=== PATIENT | male | born 2000 ===

== ENCOUNTER 2021-09-04 16:09 | Inpatient (IN) | payer OTHER, SELFPAY ==
[2021-09-04 16:47] VITALS: BP 118/78; PULSE 68; RESP 16; TEMP 36.6; O2SAT 98
[2021-09-04 16:54] VITALS: BMI 33.1
--- NOTE | 2021-09-04 18:40 | PC.ADMIT ---
Pt is a 20y/o male admitted from [facility] for Inpatient level of care. Pt presents with SI with a plan to OD on heroin. Pt is alert and oriented x3. Covid negative and Tox positive for marijuana. Pt denies SI at this time despite endorsing suicide notes. Pt presents as disheveled, hyper-verbal with normal speech tone and rhythm. Pt States that his girl friend left him because of his behavior recently secondary to going off his meds for about a year. Reports being depressed and anxious. Pt seen to be a little restless. Fixated on getting out of this place saying this is my first time here and i want to sign a 3 day notice to leave. Pt signs a 3 day notice which is going to up on wednesday, . admit/transfer order obtained. Hospitalis consult sent.
[2021-09-04] MEDS: Divalproex Sodium ER 500 MG TAB.ER.24H 1000 MG PO (19:46)
[2021-09-04] MEDS: cloNIDine HCL 0.1 MG TABLET PO (19:46)
[2021-09-04] MEDS: busPIRone HCl 5 MG TABLET 15 MG PO (19:46)
[2021-09-04 20:35] LABS: Valproate 81.7 mcg/mL (50.0-100.0)
--- NOTE | 2021-09-04 21:23 | HO.PSYADMNOT ---
Documented by User: Katy Rouse NP 09/05/21 07:43 HPI Date of Service: 09/04/21 Chief Complaint: depression SI Sources of Information: patient interviewed, chart reviewed and crisis/core team assessment reviewed HPI Subjective Notes: Calle Warning, Conditional Voluntary and 3 Day Healthcare Proxy: No Guardianship: No Medical Problems Affecting Mental Status: No Narrative: Yogi is a 20 y.o. Who carries a dx of Bipolar II DO. Per crisis eval, pt presented to the [facility] via EMS due to depression, SI. Pt?s ex-gf went to their apartment to get her belongings with PD and found pt with his medications spilled on the table, he was then placed on a section 12a. Also per eval, pt went to [place] the previous with plan to purchase a firearm for suicide, however he only bought cigarettes, went home, and drank 3.5 [place] ice teas. He also disclosed recent suicide attempt from ODing on fentanyl and heroin. He has a hx of writing suicide notes and SIB, i.e. held a knife to his throat. He reports he has been adherent on his medication since 06/2021 and has OP psych providers at [facility]. Per [facility] ED: Utox positive for cannabis, negative for alcohol. CBC wnl. CMP wnl except BUN 5. No EKG done.? I evaluated the pt this evening and upon interview he reports he is ?anxious? and ?Im willing to try anything.? Pt reports he recently re-started his depakote 07/17/2021 and that prior to this he had been off meds for 6 months. States while off medication, he had difficulty sustaining a job, ?keeping myself motivated to be better, do the right thing.? Says this worsened his depression, ?I felt like a failure, I got depressed on myself and me not being on my meds to keep me level, I kept falling deeper and deeper, I isolated myself.? Says he would play video games all day, smoking cannabis, ?shitty everyday routine.?? Pt?s gf recently ended their relationship, says she was ?trying to tell me to go get help,? however pt would become angry, ?getting in her face,? ?I scared her,? thinks she may be filing a restraining order against him. He admits that he recently went up to a gun shop in [place], however he did not purchase a firearm and says if he did, ?I dont think I would have gone through with it.? States his sleep has been poor, however today he feels ?happy? and he has had ?energy all day.? Pt is advocating for a short stay, signed a 3 day notice, saying ?I really want my family next to me.? Past Psychiatric History: -Has OP psych services at [facility], psych provider is Dr. Hubert Van -Pt reports he re-started his Depakote 07/17/2021, re-started buspar and clonidine 07/10/2021. Prior to this, he had been off his meds since 01/2021. -Pt reports he has hx of inpatient psych admissions since adolescence for disruptive, dysregulated behavior, anger episodes, and depression. Diagnosed with ADHD in childhood. 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 Medical Evaluation Reviewed: Hospitalist Eval Pending [facility] Family History: -Bio father: Bipolar DO, PTSD, ?anger management issues? -Bio mom: Depression, anxiety Social History: -Had been working for a [employer] company x 2 years, was let go 09/2020. Says he would like to start a [employer] company, has a truck already (?I got the truck when I was in a manic state?). Says his brothers have a [employer] company in [place]. -Pt was residing with his gf, however says they recently broke up and she may be filing restraining order. They were evicted from the apartment due to pt having altercation with neighbor. Plans to move in with his mom and M GMA. Substance History: -cannabis: daily use -Alcohol: last use 08/29/21, drank 3.5 [place] iced teas. Prior to this, was consuming 2 drinks a night x 1 week. States after he turned 19, he was drinking excessively but tries not to drink while on medication. Denies withdrawal sx or hx of seizures. -Opioids: states he tried to ?kill myself? the first week of July 2021 by injecting $45 worth of heroin, fentanyl. -Cocaine: states he used this ?years ago. Diagnostics Vital Signs (24Hr): Vital Signs - 24 hr 09/04/21 16:47 Temperature 97.8 F Pulse Rate 68 Respiratory Rate 16 Blood Pressure 118/78 Pulse Oximetry 98 BMI result Body Mass Index 33.1 Labs Results: 09/05/21 08:52 Labs: Laboratory Results - last 48 hr 09/04/21 20:07 Valproic Acid 81.7 Meds/Allergies Meds Home Medications Acetaminophen (Acetaminophen 325 Mg Tablet) 650 mg PO Q6H PRN PRN Reason: Headache/Pain Mild Scale (1-3) Al Hydroxide/Mg Hydroxide (Magnesium Hydrox/Alum Hydrox 30 Ml Oral.Susp) 30 ml PO Q6H PRN PRN Reason: Heartburn/Nausea Buspirone HCl (Buspirone Hcl 10 Mg Tablet) 30 mg PO BID [facility] Last Admin: 09/06/21 08:31 Dose: 30 mg Documented by: Clonidine HCl (Clonidine Hcl 0.1 Mg Tablet) 0.1 mg PO BEDTIME [facility]; Protocol Last Admin: 09/05/21 21:40 Dose: 0.1 mg Documented by: Divalproex Sodium (Divalproex Sodium Er 500 Mg Tab.Er.24h) 1,000 mg PO BID [facility] Last Admin: 09/06/21 08:31 Dose: 1,000 mg Documented by: Hydroxyzine HCl (Hydroxyzine Hcl 25 Mg Tablet) 25 mg PO Q6H PRN PRN Reason: Anxiety Magnesium Hydroxide (Milk Of Magnesia 30 Ml Oral.Susp) 30 ml PO DAILY PRN PRN Reason: Constipation Melatonin (Melatonin 3 Mg Tablet) 6 mg PO BEDTIME [facility] Last Admin: 09/05/21 21:40 Dose: 6 mg Documented by: Nicotine Polacrilex (Nicotine Polacrilex 2 Mg Gum) 4 mg BUCCAL Q2H PRN PRN Reason: smoking cessation Last Admin: 09/06/21 07:46 Dose: 4 mg Documented by: Quetiapine Fumarate (Quetiapine Fumarate 25 Mg Tablet) 25 mg PO BID PRN PRN Reason: anxiety/agitation Trazodone HCl (Trazodone Hcl 50 Mg Tablet) 50 mg PO BEDTIME PRN PRN Reason: Insomnia Allergies Allergies Allergy/AdvReac Type Severity Reaction Status Date / Time risperidone [From Risperdal] Allergy Unknown Unknown Verified 09/04/21 14:18 Mental Status Exam Mental Status Exam Narrative: A&O. In hospital attire, laceration on forehead from bench pressing injury, overweight, not malodorous. Good eye contact, inattentive. No Tics or Tremors. No abnormal involuntary movements. Somewhat activated, cooperative, engaged in conversation. Speech is somewhat pressured, talkative. No prolonged speech latency or dysarthria. Mood is ?happy,? affect is intense at times. Denies SI/SIB/HI upon inquiry. Denies A/VH or delusional thought content, however appears somewhat grandiose. Thoughts are circumstantial. No known cognitive or memory impairment. Insight/ Judgment limited. Assessment & Plan Assessment & Plan (1) Bipolar II disorder: Status: Acute Code(s): F31.81 - Bipolar II disorder Plan Yogi is a 20 y.o. Who carries a dx of Bipolar II DO. Per crisis eval, pt presented to the [facility] via EMS due to depression, SI. Hx of psych care since childhood for dysregulated behavior, ADHD, angry episodes. Pt endorses sx of hypomania, including impulsivity, irritability/ agitation, hyposomnia, grandoise ideations, and mood dysregulation. Says he was recently in a depressed episode, had SI with plan to purchase a firearm and OD attempt on fentanyl/ heroin. Hx of excessive alcohol use. Has multiple stressors including eviction notice, recent break up, and unemployment. Re-started psych medications two months ago and says he has been adherent. Plan: Signed 3 day notice on 09/04/21. Pt is requesting a medication for anxiety, denies that clonidine is helpful for anxiety, does not want to take it in the daytime. Says in the past he was on buspar 35 mg BID, however discussed that max dose is 60 mg daily. Will obtain depakote level. Pt is requesting addition of melatonin. Will defer to primary psych team for further adjustment. Patient educated on: diagnosis, medication risk/benefits and therapeutic strategies Informed Consent: understands Reason for continued inpatient stay Substantial Risk for: harm to self and med/psych decompensation
[2021-09-05] MEDS: Melatonin 3 MG TABLET 6 MG PO ×2 (00:35→21:40)
[2021-09-05] MEDS: busPIRone HCl 10 MG TABLET 30 MG PO ×3 (00:36→21:40)
[2021-09-05 06:00] VITALS: BP 114/76; PULSE 64; RESP 18; TEMP 36.4; O2SAT 99
[2021-09-05] MEDS: Divalproex Sodium ER 500 MG TAB.ER.24H 1000 MG PO ×2 (08:26→21:40)
[2021-09-05 09:19] LABS: Estimated Average Glucose 105 mg/dL; Hemoglobin A1c % 5.3 %
[2021-09-05 09:25] LABS: Alanine Aminotransferase 28 U/L (0-40); Albumin Level 4.3 g/dL (3.5-5.0); Alkaline Phosphatase 57 U/L (39-117); Anion Gap 10 (12-20); Aspartate Amino Transferase 14 U/L (5-37); Bilirubin Total 0.8 mg/dL (0.0-1.0); Blood Urea Nitrogen 10 mg/dL (9-16); Carbon Dioxide 30 mmol/L (22-29); Chloride 104 mmol/L (96-108); Cholesterol 132 mg/dL; Creatinine Clr Calc Pharmacy 146.7; Estimated Glomerular Filt Rate > 60; Glucose Fasting 106 mg/dL (60-99); HDL Cholesterol 33 mg/dL; LDL Cholesterol Calculated 72 mg/dl; Potassium 4.4 mmol/L (3.3-5.1); Sodium 140 mmol/L (135-145); Total Protein 6.9 g/dL (6.5-8.0); Triglycerides 139 mg/dL
[2021-09-05 09:46] LABS: Free T4 (Free Thyroxine) 0.99 ng/dL (0.71-1.85); Thyroid Stimulating Hormone 2.17 uIU/mL (0.32-4.0)
--- NOTE | 2021-09-05 10:05 | P.CONHOSP_ITS ---
History of Present Illness Data of Consult Service Date: 09/05/21 Primary Care Provider: Unknown Physician HPI Reason for consult: Medical assessment 20-year-old male with a bipolar, PTSD, ADHD who is presently admitted to inpatient psych due to decompensation of his bipolar disorder with with intense depressed mood feeling worthless. He has no chronic medical issues and presently reports no acute medical issues. Review of Systems Review of Systems: Gen: no fever Resp: no sob, no cough CV: no chest, no VALERIO, no leg edema GI: No n/v, no abd pain Neuro: No confusion Yes all other systems are reviewed and are negative PMFSH Social History Household Members: None Housing: Homeless Do you presently have visiting nurse or other home services: No Patient Tobacco Use Status: Current everyday Tobacco user Tobacco use type: Cigarette Cigarette Packs Per Day: 3 Cigarettes Per Day: 60.0 Years Smoked: 4years Smoked in Last 30 Days: Yes e-Cigarette/Vaping Use: Currently Using Patient Interested in Nicotine Replacement: Yes Patient Given Instructions on How to Stop Smoking: Yes Date Education Initiated: 09/04/21 Second Hand Smoke Exposure: Yes Use of substances other than those prescribed or required for medical reasons: Yes Substance Use Type: Heroin and Marijuana Substance Use Type Other:: fentanyl Substance Use Frequency: Daily Last Used Substance: Days (ago) Currently Displaying Signs/Symptoms of Drug Intoxication Withdrawal: No Any prior treatment program specific to substance use: No Have you been hit, kicked, punched, or otherwise hurt by someone within the past year? If so, by whom?: No Do you feel safe in your current relationship?: No Current Relationship Is there a partner from a previous relationship who is making you feel unsafe now?: No Are you made to feel afraid or neglected: No Spiritual Healthcare Practices: N/A Denominational Healthcare Practices: N/A Cultural Healthcare Practices: N/A Advance Directives: No Advance Directives Information Provided: No Advance Directives on File: No Do you have thoughts of harming others: None Do you have a plan to hurt others: No Plan Recently lost weight without trying: No How much weight loss: Not applicable Eating poorly because of decreased appetite: No Nutrition screen score: 0 Nutrition Risks: No Nutritional Risk Poor oral hygiene: No Meds Allergies Allergy/AdvReac Type Severity Reaction Status Date / Time risperidone [From Risperdal] Allergy Unknown Unknown Verified 09/04/21 14:18 Active Medications: Current Medications Acetaminophen (Acetaminophen 325 Mg Tablet) 650 mg PO Q6H PRN PRN Reason: Headache/Pain Mild Scale (1-3) Al Hydroxide/Mg Hydroxide (Magnesium Hydrox/Alum Hydrox 30 Ml Oral.Susp) 30 ml PO Q6H PRN PRN Reason: Heartburn/Nausea Buspirone HCl (Buspirone Hcl 10 Mg Tablet) 30 mg PO BID [facility] Last Admin: 09/05/21 08:26 Dose: 30 mg Documented by: Clonidine HCl (Clonidine Hcl 0.1 Mg Tablet) 0.1 mg PO BEDTIME [facility]; Protocol Last Admin: 09/04/21 19:46 Dose: 0.1 mg Documented by: Divalproex Sodium (Divalproex Sodium Er 500 Mg Tab.Er.24h) 1,000 mg PO BID [facility] Last Admin: 09/05/21 08:26 Dose: 1,000 mg Documented by: Hydroxyzine HCl (Hydroxyzine Hcl 25 Mg Tablet) 25 mg PO Q6H PRN PRN Reason: Anxiety Magnesium Hydroxide (Milk Of Magnesia 30 Ml Oral.Susp) 30 ml PO DAILY PRN PRN Reason: Constipation Melatonin (Melatonin 3 Mg Tablet) 6 mg PO BEDTIME [facility] Last Admin: 09/05/21 00:35 Dose: 6 mg Documented by: Trazodone HCl (Trazodone Hcl 50 Mg Tablet) 50 mg PO BEDTIME PRN PRN Reason: Insomnia Home Medications Medication Instructions Recorded Confirmed Last Taken Type buspirone 15 mg tablet 1 tab PO BID 09/04/21 09/04/21 Unknown History buspirone 5 mg tablet 1 tab PO DAILY 09/04/21 09/04/21 Unknown History buspirone 7.5 mg tablet 1 tab PO BID 09/04/21 09/04/21 Unknown History clonidine HCl 0.1 mg tablet 1 tab PO BEDTIME 09/04/21 09/04/21 Unknown History divalproex 500 mg tablet,extended 1,000 mg PO BID 09/04/21 09/04/21 Unknown History release 24 hr nicotine (polacrilex) 4 mg gum 1 ea PO NEEDED 09/04/21 09/04/21 Unknown His tory nicotine 21 mg/24 hr daily 1 patch TOPICAL DAILY 09/04/21 09/04/21 Unknown History transdermal patch Physical Exam Vital Signs and Narrative: Vital Signs: Last Vital Signs Temp 97.6 F 09/05/21 06:00 Pulse 64 09/05/21 06:00 Resp 18 09/05/21 06:00 BP 114/76 09/05/21 06:00 Pulse Ox 99 09/05/21 06:00 BMI result Body Mass Index 33.1 Const: Other: General: AO X 3, no acute distress Resp: CTA bilateral CVS: S1,S2,RRR GI: +BS, NT, no distention Skin: No rash Neuro: motor grossly intact, CN 2to 12 intact Psych: appropriate affect Results Labs CBC and Chem 7: 09/05/21 08:52 Labs: Laboratory Results - last 24 hr 09/04/21 09/05/21 09/05/21 20:07 08:52 08:52 Anion Gap 10 L Estim Creat Clear Calc 146.7 Estimated GFR > 60 Fasting Glucose 106 H Estimat Average Glucose 105 Hemoglobin A1c % 5.3 Calcium 10.0 Magnesium 2.0 Total Bilirubin 0.8 AST 14 ALT 28 Alkaline Phosphatase 57 Total Protein 6.9 Albumin 4.3 Triglycerides 139 Cholesterol 132 LDL Cholesterol, Calc 72 HDL Cholesterol 33 TSH 2.17 Free T4 0.99 Valproic Acid 81.7 Assessment and Plan (1) Bipolar II disorder: Status: Acute Plan 20-year-old male with a bipolar, PTSD, ADHD who is presently admitted to inpatient psych due to decompensation of his bipolar disorder with with intense depressed mood feeling worthless. He has no chronic medical issues and presently reports no acute medical issues. plan/recommendation: Kindly continue ongoing psychiatric care, no medical issues at moment. Advised on quiting smoking and taken covid precautions. Will follow PRN
[2021-09-05 10:17] LABS: Folate 6.3 ng/mL (> or = 4.0); Vitamin B12 501 pg/mL (200-900)
--- NOTE | 2021-09-05 10:18 | HO.PSYADMNOT ---
HPI Date of Service: 09/05/21 Chief Complaint: depression SI Sources of Information: patient interviewed, chart reviewed and crisis/core team assessment reviewed HPI Subjective Notes: Calle Warning, Conditional Voluntary and 3 Day Past Psychiatric History: -Has OP psych services at [facility], psych provider is Dr. Hubert Van -Pt reports he re-started his Depakote 07/17/2021, re-started buspar and clonidine 07/10/2021. Prior to this, he had been off his meds since 01/2021. -Pt reports he has hx of inpatient psych admissions since adolescence for disruptive, dysregulated behavior, anger episodes, and depression. Diagnosed with ADHD in childhood. 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 [facility] Family History: -Bio father: Bipolar DO, PTSD, ?anger management issues? -Bio mom: Depression, anxiety Social History: -Had been working for a [employer] company x 2 years, was let go 09/2020. Says he would like to start a [employer] company, has a truck already (?I got the truck when I was in a manic state?). Says his brothers have a [employer] company in [facility]. -Pt was residing with his gf, however says they recently broke up and she may be filing restraining order. They were evicted from the apartment due to pt having altercation with neighbor. Plans to move in with his mom and M GMA. Diagnostics Vital Signs (24Hr): Vital Signs - 24 hr 09/04/21 16:47 09/05/21 06:00 Temperature 97.8 F 97.6 F Pulse Rate 68 64 Respiratory Rate 16 18 Blood Pressure 118/78 114/76 Pulse Oximetry 98 99 BMI result Body Mass Index 33.1 Labs Results: 09/05/21 08:52 Labs: Laboratory Results - last 48 hr 09/04/21 09/05/2109/05/22 20:07 08:52 08:52 Sodium 140 Potassium 4.4 Chloride 104 Carbon Dioxide 30 H Anion Gap 10 L BUN 10 Creatinine 1.08 Estim Creat Clear Calc 146.7 Estimated GFR > 60 Fasting Glucose 106 H Estimat Average Glucose 105 Hemoglobin A1c % 5.3 Calcium 10.0 Magnesium 2.0 Total Bilirubin 0.8 AST 14 ALT 28 Alkaline Phosphatase 57 Total Protein 6.9 Albumin 4.3 Triglycerides 139 Cholesterol 132 LDL Cholesterol, Calc 72 HDL Cholesterol 33 Vitamin B12 Folate TSH 2.17 Free T4 0.99 Valproic Acid 81.7 09/05/21 08:52 Sodium Potassium Chloride Carbon Dioxide Anion Gap BUN Creatinine Estim Creat Clear Calc Estimated GFR Fasting Glucose Estimat Average Glucose Hemoglobin A1c % Calcium Magnesium Total Bilirubin AST ALT Alkaline Phosphatase Total Protein Albumin Triglycerides Cholesterol LDL Cholesterol, Calc HDL Cholesterol Vitamin B12 501 Folate 6.3 TSH Free T4 Valproic Acid Meds/Allergies Meds Home Medications Acetaminophen (Acetaminophen 325 Mg Tablet) 650 mg PO Q6H PRN PRN Reason: Headache/Pain Mild Scale (1-3) Al Hydroxide/Mg Hydroxide (Magnesium Hydrox/Alum Hydrox 30 Ml Oral.Susp) 30 ml PO Q6H PRN PRN Reason: Heartburn/Nausea Buspirone HCl (Buspirone Hcl 10 Mg Tablet) 30 mg PO BID [facility] Last Admin: 09/05/21 08:26 Dose: 30 mg Documented by: Clonidine HCl (Clonidine Hcl 0.1 Mg Tablet) 0.1 mg PO BEDTIME [facility]; Protocol Last Admin: 09/04/21 19:46 Dose: 0.1 mg Documented by: Divalproex Sodium (Divalproex Sodium Er 500 Mg Tab.Er.24h) 1,000 mg PO BID [facility] Last Admin: 09/05/21 08:26 Dose: 1,000 mg Documented by: Hydroxyzine HCl (Hydroxyzine Hcl 25 Mg Tablet) 25 mg PO Q6H PRN PRN Reason: Anxiety Magnesium Hydroxide (Milk Of Magnesia 30 Ml Oral.Susp) 30 ml PO DAILY PRN PRN Reason: Constipation Melatonin (Melatonin 3 Mg Tablet) 6 mg PO BEDTIME [facility] Last Admin: 09/05/21 00:35 Dose: 6 mg Documented by: Trazodone HCl (Trazodone Hcl 50 Mg Tablet) 50 mg PO BEDTIME PRN PRN Reason: Insomnia Allergies Allergies Allergy/AdvReac Type Severity Reaction Status Date / Time risperidone [From Risperdal] Allergy Unknown Unknown Verified 09/04/21 14:18
--- NOTE | 2021-09-05 10:55 | PC.NURSE ---
Yogi is a smoker and declined a nicotine patch and requested PRN nicotine gum.
--- NOTE | 2021-09-05 11:15 | HO.PSYCHPN ---
Subjective Subjective Date of Service: 09/05/21 Reason For Visit: depression SI Interim History: pt calm and cooperative; a little loud and with mildly pressured speech, but organized in speech and behavior. Pt went over hx. He says he was off meds for a year since his boss would not let him have time off to see doctor and he agrees he decompensated and got very depressed. Pt got back on depakote around 07/17/21 but did not get back on Ziprasidone saying though it helped delay angry response, when he eventually did get angry, he was severely explosive. Pt says he got suicidal this past month, overwhelmed with relational strife with girlfriend, getting evicted. He says he knows he pushes her away with his behaviors but loves her and her pushing him away left him feeling despondant. He said back in early July he did shoot heroin in suicide attempt; otherwise, he says he has not made any real attempts and never really got close to getting a gun. Pt said that he has not had any SI at all since getting to ER a week ago in [place] and this past week has helped him to get more clarity and feel more stable. Pt's plan is to return to [facility] where he'll live with his mother (uncle will pick him up on discharge and take him). Pt thinks that he needs therapy and more coping skills rather than adding another anti-psychotic. However he is willing to try an PRN anti-psychotic for when he starts getting dysregulated and agreed to trial of low dose Seroquel. Pt put in 3 day and says he hopes to discharge as soon as possible. He accepts however that he'll need to stabilize on unit a bit. Mental Status Exam Mental Status Exam Narrative: Pt is alert and oriented; behavior is cooperative, friendly and though can be a little hyperactive is able to settle down and talk; patient is not in distress; dressed in casual attire with adequate hygiene; mood is described as good affect a little intense; eye contact appropriate; Speech is mildly pressured but he is interuptable; little loud; normal prosody; no psychomotor agitation/retardation present; thought process is organized and goal directed; Thought content is on tx; otherwise pertinent to relevant topics and without any delusional content, paranoid ideations or grandiosity; denies any SI/HI. There is no evidence of perceptual disturbance. Patients insight and judgment are impaired but seem to be improving. Diagnostics Vital Signs (24Hr): Vital Signs - 24 hr 09/04/21 16:47 09/05/21 06:00 Temperature 97.8 F 97.6 F Pulse Rate 68 64 Respiratory Rate 16 18 Blood Pressure 118/78 114/76 Pulse Oximetry 98 99 BMI result Body Mass Index 33.1 Labs Results: 09/05/21 08:52 Labs: Laboratory Results - last 48 hr 09/04/21 09/05/21 09/05/21 20:07 08:52 08:52 Sodium 140 Potassium 4.4 Chloride 104 Carbon Dioxide 30 H Anion Gap 10 L BUN 10 Creatinine 1.08 Estim Creat Clear Calc 146.7 Estimated GFR > 60 Fasting Glucose 106 H Estimat Average Glucose 105 Hemoglobin A1c % 5.3 Calcium 10.0 Magnesium 2.0 Total Bilirubin 0.8 AST 14 ALT 28 Alkaline Phosphatase 57 Total Protein 6.9 Albumin 4.3 Triglycerides 139 Cholesterol 132 LDL Cholesterol, Calc 72 HDL Cholesterol 33 Vitamin B12 Folate TSH 2.17 Free T4 0.99 Valproic Acid 81.7 09/05/21 08:52 Sodium Potassium Chloride Carbon Dioxide Anion Gap BUN Creatinine Estim Creat Clear Calc Estimated GFR Fasting Glucose Estimat Average Glucose Hemoglobin A1c % Calcium Magnesium Total Bilirubin AST ALT Alkaline Phosphatase Total Protein Albumin Triglycerides Cholesterol LDL Cholesterol, Calc HDL Cholesterol Vitamin B12 501 Folate 6.3 TSH Free T4 Valproic Acid Medications Medications Current Medications Acetaminophen (Acetaminophen 325 Mg Tablet) 650 mg PO Q6H PRN PRN Reason: Headache/Pain Mild Scale (1-3) Al Hydroxide/Mg Hydroxide (Magnesium Hydrox/Alum Hydrox 30 Ml Oral.Susp) 30 ml PO Q6H PRN PRN Reason: Heartburn/Nausea Buspirone HCl (Buspirone Hcl 10 Mg Tablet) 30 mg PO BID [facility] Last Admin: 09/05/21 08:26 Dose: 30 mg Documented by: Clonidine HCl (Clonidine Hcl 0.1 Mg Tablet) 0.1 mg PO BEDTIME [facility]; Protocol Last Admin: 09/04/21 19:46 Dose: 0.1 mg Documented by: Divalproex Sodium (Divalproex Sodium Er 500 Mg Tab.Er.24h) 1,000 mg PO BID [facility] Last Admin: 09/05/21 08:26 Dose: 1,000 mg Documented by: Hydroxyzine HCl (Hydroxyzine Hcl 25 Mg Tablet) 25 mg PO Q6H PRN PRN Reason: Anxiety Magnesium Hydroxide (Milk Of Magnesia 30 Ml Oral.Susp) 30 ml PO DAILY PRN PRN Reason: Constipation Melatonin (Melatonin 3 Mg Tablet) 6 mg PO BEDTIME [place] Last Admin: 09/05/21 00:35 Dose: 6 mg Documented by: Nicotine Polacrilex (Nicotine Polacrilex Lozenge 4 Mg Lozenge) 4 mg BUCCAL Q2H PRN PRN Reason: Nicotine Cravings Trazodone HCl (Trazodone Hcl 50 Mg Tablet) 50 mg PO BEDTIME PRN PRN Reason: Insomnia Allergies Allergies Allergy/AdvReac Type Severity Reaction Status Date / Time risperidone [From Risperdal] Allergy Unknown Unknown Verified 09/04/21 14:18 Assessment & Plan Assessment & Plan (1) Bipolar II disorder: Status: Acute Code(s): F31.81 - Bipolar II disorder Plan Yogi is a 20 y.o. Who carries a dx of Bipolar II DO. Per crisis eval, pt presented to the [place] ED via EMS due to depression, SI. Hx of psych care since childhood for dysregulated behavior, ADHD, angry episodes. Pt endorses sx of hypomania, including impulsivity, irritability/ agitation, hyposomnia, grandoise ideations, and mood dysregulation. Says he was recently in a depressed episode, had SI with plan to purchase a firearm and OD attempt on fentanyl/ heroin. Hx of excessive alcohol use. Has multiple stressors including eviction notice, recent break up, and unemployment. Re-started psych medications two months ago and says he has been adherent. 09/05 hypomanic but organized in speech and behavior; does not want scheduled antipsychotic but open to trying a prn for when gets dysregulated. Seems that SI, dysregulated behavior resolved while in ED for past 6 days at [place] ED. Will monitor Plan: Signed 3 day notice on 09/04/21. -continue depkote -depakote level ordered with Liver panel -START Seroquel 25mg prn for anxiety; pt cautious about dose so starting low; Increased as clinically indicated . I spent minutes with the patient and/or on the patient floor today, greater than?50% of which was spent counseling/coordinating care. Patient educated on: diagnosis and medication risk/benefits Informed Consent: understands Reason for contiued inpatient stay Substantial Risk for: med/psych decompensation
[2021-09-05 17:25] VITALS: BP 125/56; PULSE 79; RESP 18; TEMP 36.9; O2SAT 98
[2021-09-05] MEDS: cloNIDine HCL 0.1 MG TABLET PO (21:40)
[2021-09-05] MEDS: Nicotine Polacrilex 2 MG GUM 4 MG BUCCAL (22:16)
[2021-09-06 06:00] VITALS: BP 103/49; PULSE 60; RESP 16; TEMP 36.1; O2SAT 98
[2021-09-06] MEDS: Nicotine Polacrilex 2 MG GUM 4 MG BUCCAL ×9 (07:46→21:26)
[2021-09-06] MEDS: Divalproex Sodium ER 500 MG TAB.ER.24H 1000 MG PO ×2 (08:31→21:29)
[2021-09-06] MEDS: busPIRone HCl 10 MG TABLET 30 MG PO ×2 (08:31→21:28)
[2021-09-06 08:42] LABS: Alanine Aminotransferase 26 U/L (0-40); Albumin Level 4.2 g/dL (3.5-5.0); Alkaline Phosphatase 53 U/L (39-117); Aspartate Amino Transferase 15 U/L (5-37); Bilirubin Direct 0.2 mg/dL (0.0-0.5); Bilirubin Total 0.4 mg/dL (0.0-1.0); Total Protein 6.6 g/dL (6.5-8.0)
[2021-09-06 09:04] LABS: Valproate 86.1 mcg/mL (50.0-100.0)
[2021-09-06 09:06] LABS: Ammonia 51 umol/L (13-55)
--- NOTE | 2021-09-06 11:50 | P.PNPSI_ITS ---
Subjective Subjective Date of Service: 09/06/21 Reason For Visit: depression SI Subjective Notes: 3 Day Healthcare Proxy: No Guardianship: No Interim History: Patient cooperative with treatment continues on Depakote has 3 day notice patient states he is future oriented denies self-harm states he will go to Medication Compliance: Yes Side effects from medications: Yes Mental Status Exam Mental Status Exam Patient Appearance: Well Grooomed Level of Consciousness: Awake Patient Behavior: Appropriate Mood Description: Anxious and Apprehensive Affect Description: Depressed, Anxious and Apprehensive Hallucinations: None Delusions: Not Present Thought Process: Intact Thought Content: negative for Suicidal Ideation or negative for Homicidal Ideation Depressive Symptoms: Increased Anxiety and Unhappiness Judgement and Insight: Improving insight and judgment denies thoughts of self-harm agreeable to continue Depakote Diagnostics Vital Signs (24Hr): Vital Signs - 24 hr 09/05/21 17:25 09/06/21 06:00 Temperature 98.4 F 97 F Pulse Rate 79 60 Respiratory Rate 18 16 Blood Pressure 125/56 L 103/49 L Pulse Oximetry 98 98 BMI result Body Mass Index 33.1 Labs Results: 09/05/21 08:52 Labs: Laboratory Results - last 48 hr 09/04/21 09/05/21 09/05/21 20:07 08:52 08:52 Sodium 140 Potassium 4.4 Chloride 104 Carbon Dioxide 30 H Anion Gap 10 L BUN 10 Creatinine 1.08 Estim Creat Clear Calc 146.7 Estimated GFR > 60 Fasting Glucose 106 H Estimat Average Glucose 105 Hemoglobin A1c % 5.3 Calcium 10.0 Magnesium 2.0 Total Bilirubin 0.8 Direct Bilirubin AST 14 ALT 28 Alkaline Phosphatase 57 Ammonia Total Protein 6.9 Albumin 4.3 Triglycerides 139 Cholesterol 132 LDL Cholesterol, Calc 72 HDL Cholesterol 33 Vitamin B12 Folate TSH 2.17 Free T4 0.99 Valproic Acid 81.7 09/05/21 09/06/21 09/06/21 08:52 07:51 07:51 Sodium Potassium Chloride Carbon Dioxide Anion Gap BUN Creatinine Estim Creat Clear Calc Estimated GFR Fasting Glucose Estimat Average Glucose Hemoglobin A1c % Calcium Magnesium Total Bilirubin 0.4 Direct Bilirubin 0.2 AST 15 ALT 26 Alkaline Phosphatase 53 Ammonia 51 Total Protein 6.6 Albumin 4.2 Triglycerides Cholesterol LDL Cholesterol, Calc HDL Cholesterol Vitamin B12 501 Folate 6.3 TSH Free T4 Valproic Acid 86.1 Medications Medications Current Medications Acetaminophen (Acetaminophen 325 Mg Tablet) 650 mg PO Q6H PRN PRN Reason: Headache/Pain Mild Scale (1-3) Al Hydroxide/Mg Hydroxide (Magnesium Hydrox/Alum Hydrox 30 Ml Oral.Susp) 30 ml PO Q6H PRN PRN Reason: Heartburn/Nausea Buspirone HCl (Buspirone Hcl 10 Mg Tablet) 30 mg PO BID [facility] Last Admin: 09/06/21 08:31 Dose: 30 mg Documented by: Clonidine HCl (Clonidine Hcl 0.1 Mg Tablet) 0.1 mg PO BEDTIME [facility]; Protocol Last Admin: 09/05/21 21:40 Dose: 0.1 mg Documented by: Divalproex Sodium (Divalproex Sodium Er 500 Mg Tab.Er.24h) 1,000 mg PO BID [facility] Last Admin: 09/06/21 08:31 Dose: 1,000 mg Documented by: Hydroxyzine HCl (Hydroxyzine Hcl 25 Mg Tablet) 25 mg PO Q6H PRN PRN Reason: Anxiety Magnesium Hydroxide (Milk Of Magnesia 30 Ml Oral.Susp) 30 ml PO DAILY PRN PRN Reason: Constipation Melatonin (Melatonin 3 Mg Tablet) 6 mg PO BEDTIME [facility] Last Admin: 09/05/21 21:40 Dose: 6 mg Documented by: Nicotine Polacrilex (Nicotine Polacrilex 2 Mg Gum) 4 mg BUCCAL Q2H PRN PRN Reason: smoking cessation Last Admin: 09/06/21 07:46 Dose: 4 mg Documented by: Quetiapine Fumarate (Quetiapine Fumarate 25 Mg Tablet) 25 mg PO BID PRN PRN Reason: anxiety/agitation Trazodone HCl (Trazodone Hcl 50 Mg Tablet) 50 mg PO BEDTIME PRN PRN Reason: Insomnia Allergies Allergies Allergy/AdvReac Type Severity Reaction Status Date / Time risperidone [From Risperdal] Allergy Unknown Unknown Verified 09/04/21 14:18 Assessment & Plan Assessment & Plan (1) Bipolar II disorder: Status: Acute Code(s): F31.81 - Bipolar II disorder Plan Yogi is a 20 y.o. Who carries a dx of Bipolar II DO. Per crisis eval, pt presented to the [place] ED via EMS due to depression, SI. Hx of psych care since childhood for dysregulated behavior, ADHD, angry episodes. Pt endorses sx of hypomania, including impulsivity, irritability/ agitation, hyposomnia, grandoise ideations, and mood dysregulation. Says he was recently in a depressed episode, had SI with plan to purchase a firearm and OD attempt on fentanyl/ heroin. Hx of excessive alcohol use. Has multiple stressors including eviction notice, recent break up, and unemployment. Re-started psych medications two months ago and says he has been adherent. Plan: Signed 3 day notice on 09/04/21. Pt is requesting a medication for anxiety, denies that clonidine is helpful for anxiety, does not want to take it in the daytime. Says in the past he was on buspar 35 mg BID, however discussed that max dose is 60 mg daily. Will obtain depakote level. Pt is requesting addition of melatonin. Will defer to primary psych team for further adjustment. Assessment and plan 09/06/2021 Patient seen cooperative on interview history of bipolar disorder ADHD. Future oriented denies self-harming thoughts has plan to return to [facility] to be with his family labs unremarkable the patient remains on 3 day notice I spent _17 minutes with the patient and/or on the patient floor today, greater than?50% of which was spent counseling/coordinating care. Patient educated on: diagnosis, medication risk/benefits and therapeutic strategies Informed Consent: understands Reason for contiued inpatient stay Substantial Risk for: harm to self and rapid decompensation
[2021-09-06 20:58] VITALS: BP 131/93; PULSE 78; RESP 16; TEMP 36.3; O2SAT 97
[2021-09-06] MEDS: Melatonin 3 MG TABLET 6 MG PO (21:28)
[2021-09-06] MEDS: cloNIDine HCL 0.1 MG TABLET PO (21:28)
[2021-09-06] MEDS: Acetaminophen 325 MG TABLET 650 MG PO (21:52)
--- NOTE | 2021-09-06 22:24 | PC.NURSE ---
PT reports exercising in his room and hearing a popping sound and then a painful sensation in his left shoulder. No redness, bruising or swelling noted. Full ROM. Acetaminophen 650mg given PO, effect pending. bingo caller (Nena) made aware, no further orders at this time.
[2021-09-07] MEDS: Nicotine Polacrilex 2 MG GUM 4 MG BUCCAL ×9 (08:01→21:06)
[2021-09-07] MEDS: busPIRone HCl 10 MG TABLET 30 MG PO ×2 (08:25→20:15)
[2021-09-07] MEDS: Divalproex Sodium ER 500 MG TAB.ER.24H 1000 MG PO ×2 (08:25→20:14)
[2021-09-07 18:00] VITALS: BP 121/68; PULSE 68; RESP 16; TEMP 36.4; O2SAT 97
[2021-09-07] MEDS: cloNIDine HCL 0.1 MG TABLET PO (20:14)
[2021-09-07] MEDS: Melatonin 3 MG TABLET 6 MG PO (20:14)
--- NOTE | 2021-09-07 21:55 | P.PNPSI_ITS ---
Subjective Subjective Date of Service: 09/07/21 Reason For Visit: depression SI Subjective Notes: Conditional Voluntary and 3 Day Healthcare Proxy: No Guardianship: No Interim History: Patient feels somewhat trapped in isolated in this setting. History of ADHD and reactivity history of bipolar disorder. Past use of clonidine but it was too sedating for him. Does have a 3 day notice he states he is future oriented made plans to stay with his family on the [facility] Medication Compliance: No Side effects from medications: No Attending Groups: Intermittent Review of Systems Acute medical concerns: No Medical Review of Systems: unchanged Mental Status Exam Mental Status Exam Patient Appearance: Well Grooomed Level of Consciousness: Awake Patient Behavior: Appropriate Behavior Comments: Mildly pressured Mood Description: Anxious, Nervous and Apprehensive Affect Description: Depressed, Anxious and Apprehensive Patient Cognition Impaired: No Ability to Follow Directions: Good Speech Pattern: Perseverating Memory Description: Intact Hallucinations: None Delusions: Not Present Thought Process: Intact Thought Content: negative for Suicidal Ideation or negative for Homicidal Ideation Depressive Symptoms: Increased Anxiety and Unhappiness Judgement and Insight: Improving insight and judgment denies thoughts of self-harm agreeable to continue Depakote eager for discharge States he is feeling much more stable regretful regarding what happened Diagnostics Vital Signs (24Hr): BMI result Body Mass Index 33.1 Labs Results: 09/05/21 08:52 Labs: Laboratory Results - last 48 hr 09/06/21 09/06/21 07:51 07:51 Total Bilirubin 0.4 Direct Bilirubin 0.2 AST 15 ALT 26 Alkaline Phosphatase 53 Ammonia 51 Total Protein 6.6 Albumin 4.2 Valproic Acid 86.1 Medications Medications Current Medications Acetaminophen (Acetaminophen 325 Mg Tablet) 650 mg PO Q6H PRN PRN Reason: Headache/Pain Mild Scale (1-3) Last Admin: 09/06/21 21:52 Dose: 650 mg Documented by: Al Hydroxide/Mg Hydroxide (Magnesium Hydrox/Alum Hydrox 30 Ml Oral.Susp) 30 ml PO Q6H PRN PRN Reason: Heartburn/Nausea Buspirone HCl (Buspirone Hcl 10 Mg Tablet) 30 mg PO BID [place] Last Admin: 09/07/21 20:15 Dose: 30 mg Documented by: Clonidine HCl (Clonidine Hcl 0.1 Mg Tablet) 0.1 mg PO BEDTIME [place]; Protocol Last Admin: 09/07/21 20:14 Dose: 0.1 mg Documented by: Divalproex Sodium (Divalproex Sodium Er 500 Mg Tab.Er.24h) 1,000 mg PO BID [facility] Last Admin: 09/07/21 20:14 Dose: 1,000 mg Documented by: Hydroxyzine HCl (Hydroxyzine Hcl 25 Mg Tablet) 25 mg PO Q6H PRN PRN Reason: Anxiety Magnesium Hydroxide (Milk Of Magnesia 30 Ml Oral.Susp) 30 ml PO DAILY PRN PRN Reason: Constipation Melatonin (Melatonin 3 Mg Tablet) 6 mg PO BEDTIME [facility] Last Admin: 09/07/21 20:14 Dose: 6 mg Documented by: Nicotine Polacrilex (Nicotine Polacrilex 2 Mg Gum) 4 mg BUCCAL Q1H PRN PRN Reason: smoking cessation Last Admin: 09/07/21 21:06 Dose: 4 mg Documented by: Quetiapine Fumarate (Quetiapine Fumarate 25 Mg Tablet) 25 mg PO BID PRN PRN Reason: anxiety/agitation Trazodone HCl (Trazodone Hcl 50 Mg Tablet) 50 mg PO BEDTIME PRN PRN Reason: Insomnia Allergies Allergies Allergy/AdvReac Type Severity Reaction Status Date / Time risperidone [From Risperdal] Allergy Unknown Unknown Verified 09/04/21 14:18 Assessment & Plan Assessment & Plan (1) Bipolar II disorder: Status: Acute Code(s): F31.81 - Bipolar II disorder Plan Yogi is a 20 y.o. Who carries a dx of Bipolar II DO. Per crisis eval, pt presented to the [place] ED via EMS due to depression, SI. Hx of psych care since childhood for dysregulated behavior, ADHD, angry episodes. Pt endorses sx of hypomania, including impulsivity, irritability/ agitation, hyposomnia, grandoise ideations, and mood dysregulation. Says he was recently in a depressed episode, had SI with plan to purchase a firearm and OD attempt on fentanyl/ heroin. Hx of excessive alcohol use. Has multiple stressors including eviction notice, recent break up, and unemployment. Re-started psych medications two months ago and says he has been adherent. Plan: Signed 3 day notice on 09/04/21. Pt is requesting a medication for anxiety, denies that clonidine is helpful for anxiety, does not want to take it in the daytime. Says in the past he was on buspar 35 mg BID, however discussed that max dose is 60 mg daily. Will obtain depakote level. Pt is requesting addition of melatonin. Will defer to primary psych team for further adjustment. Assessment and plan 09/06/2021 Patient seen cooperative on interview history of bipolar disorder ADHD. Future oriented denies self-harming thoughts has plan to return to [facility] to be with his family labs unremarkable the patient remains on 3 day notice 09/07/2021 Patient eager for discharge somewhat pressured but not hostile or aggressive case reviewed with patient's mother continue Depakote History of ADHD bipolar 2 might eventually benefit from Tenex Strattera this would be an outpatient intervention He states he has made a safety plan his family Patient educated on: diagnosis, substance abuse and therapeutic strategies Informed Consent: further education needed Reason for contiued inpatient stay Substantial Risk for: harm to self and rapid decompensation
[2021-09-08] MEDS: Nicotine Polacrilex 2 MG GUM 4 MG BUCCAL ×9 (02:38→16:45)
[2021-09-08 06:00] VITALS: BP 118/72; PULSE 72; RESP 18; TEMP 36.5; O2SAT 98
[2021-09-08] MEDS: busPIRone HCl 10 MG TABLET 30 MG PO ×2 (08:47→20:58)
[2021-09-08] MEDS: Divalproex Sodium ER 500 MG TAB.ER.24H 1000 MG PO ×2 (08:47→20:58)
--- NOTE | 2021-09-08 10:11 | HO.PSYCHPN ---
Subjective Subjective Date of Service: 09/08/21 Reason For Visit: depression SI Interim History: pt says wants discharge, very bored on unit and feeling frustrated being here; he has not availed of prns saying he wants to learn to cope w/out them. Denies any SI or HI or AVH. Pt with mild to moderately pressured speech, Continues to articulate his plan for staying stable, repeating himself. He does not want any additional medication or PRN's saying he wants to learn coping skills and is tired of others telling him how to live. Pt however did says he could agree that he may still be hypomanic; he conceds he may at some point need additional medication, however, he says he wants to review the meds on his own first and discuss it with his outpt provider. Pt reports he's sleeping through the night. frequent pushing of boundaries but eventually accepts in the end Mental Status Exam Mental Status Exam Narrative: Patient Appearance: casual attire, adequately Groomed Level of Consciousness:?Awake Patient Behavior:?frequent requests to have some unit rules suspended for his comfort Mood Description:? frustrated Affect Description:?congruent Patient Cognition Impaired:?No Ability to Follow Directions:fair Speech Pattern: mildly pressured Memory Description:?Intact Hallucinations:?None Delusions:?Not Present Thought Process:goal oriented Thought Content:?discharge; negative for Suicidal Ideation or negative for Homicidal Ideation Judgement and Insight:?fair, adequate Diagnostics Vital Signs (24Hr): Vital Signs - 24 hr 09/07/21 18:00 09/08/21 06:00 Temperature 97.6 F 97.7 F Pulse Rate 68 72 Respiratory Rate 16 18 Blood Pressure 121/68 118/72 Pulse Oximetry 97 98 BMI result Body Mass Index 33.1 Labs Results: 09/05/21 08:52 Medications Medications Current Medications Acetaminophen (Acetaminophen 325 Mg Tablet) 650 mg PO Q6H PRN PRN Reason: Headache/Pain Mild Scale (1-3) Last Admin: 09/06/21 21:52 Dose: 650 mg Documented by: Al Hydroxide/Mg Hydroxide (Magnesium Hydrox/Alum Hydrox 30 Ml Oral.Susp) 30 ml PO Q6H PRN PRN Reason: Heartburn/Nausea Buspirone HCl (Buspirone Hcl 10 Mg Tablet) 30 mg PO BID [facility] Last Admin: 09/08/21 08:47 Dose: 30 mg Documented by: Clonidine HCl (Clonidine Hcl 0.1 Mg Tablet) 0.1 mg PO BEDTIME [facility]; Protocol Last Admin: 09/07/21 20:14 Dose: 0.1 mg Documented by: Divalproex Sodium (Divalproex Sodium Er 500 Mg Tab.Er.24h) 1,000 mg PO BID [facility] Last Admin: 09/08/21 08:47 Dose: 1,000 mg Documented by: Hydroxyzine HCl (Hydroxyzine Hcl 25 Mg Tablet) 25 mg PO Q6H PRN PRN Reason: Anxiety Magnesium Hydroxide (Milk Of Magnesia 30 Ml Oral.Susp) 30 ml PO DAILY PRN PRN Reason: Constipation Melatonin (Melatonin 3 Mg Tablet) 6 mg PO BEDTIME [facility] Last Admin: 09/07/21 20:14 Dose: 6 mg Documented by: Nicotine Polacrilex (Nicotine Polacrilex 2 Mg Gum) 4 mg BUCCAL Q1H PRN PRN Reason: smoking cessation Last Admin: 09/08/21 08:48 Dose: 4 mg Documented by: Quetiapine Fumarate (Quetiapine Fumarate 25 Mg Tablet) 25 mg PO BID PRN PRN Reason: anxiety/agitation Trazodone HCl (Trazodone Hcl 50 Mg Tablet) 50 mg PO BEDTIME PRN PRN Reason: Insomnia Allergies Allergies Allergy/AdvReac Type Severity Reaction Status Date / Time risperidone [From Risperdal] Allergy Unknown Unknown Verified 09/04/21 14:18 Assessment & Plan Assessment & Plan (1) Bipolar II disorder: Status: Acute Code(s): F31.81 - Bipolar II disorder Plan Yogi is a 20 y.o. Who carries a dx of Bipolar II DO. Per crisis eval, pt presented to the [place] ED via EMS due to depression, SI. Hx of psych care since childhood for dysregulated behavior, ADHD, angry episodes. Pt endorses sx of hypomania, including impulsivity, irritability/ agitation, hyposomnia, grandoise ideations, and mood dysregulation. Says he was recently in a depressed episode, had SI with plan to purchase a firearm and OD attempt on fentanyl/ heroin. Hx of excessive alcohol use. Has multiple stressors including eviction notice, recent break up, and unemployment. Re-started psych medications two months ago and says he has been adherent. Assessment and plan 09/06/2021 Patient seen cooperative on interview history of bipolar disorder ADHD. Future oriented denies self-harming thoughts has plan to return to [facility] to be with his family labs unremarkable the patient remains on 3 day notice 09/07/2021 Patient eager for discharge somewhat pressured but not hostile or aggressive case reviewed with patient's mother continue Depakote History of ADHD bipolar 2 might eventually benefit from Tenex Strattera this would be an outpatient intervention He states he has made a safety plan his family 09/08 pt has remained stable; mildy hypomamnic and persistently trying to get specialized treatment, but otherwise remains w/ appropriate behavior, in good behavioral control and no unsafe behaviors. Future oriented; sleeping and eating well; returning home to live w/ mother; no SI or HI; pt not in imminent risk of harm to self or others and does not meet criteria for involuntary commitment; request for discharge honored. PLAN 3 day notice due 09/09 continue home meds (labs wnl and discussed w/ pt) discharge on 09/09 I spent minutes with the patient and/or on the patient floor today, greater than?50% of which was spent counseling/coordinating care. Patient educated on: diagnosis and medication risk/benefits Informed Consent: understands and further education needed Reason for contiued inpatient stay Substantial Risk for: stable for discharge
[2021-09-08] MEDS: Nicotine Polacrilex 2 MG GUM BUCCAL ×5 (17:54→21:43)
[2021-09-08 18:00] VITALS: BP 114/66; PULSE 85; RESP 18; TEMP 36.7; O2SAT 98
[2021-09-08] MEDS: Melatonin 3 MG TABLET 6 MG PO (20:57)
[2021-09-08] MEDS: cloNIDine HCL 0.1 MG TABLET PO (20:58)
[2021-09-09] MEDS: Nicotine Polacrilex 2 MG GUM BUCCAL ×4 (04:14→09:17)
[2021-09-09 06:00] VITALS: BP 135/60; PULSE 76; RESP 18; TEMP 36.3; O2SAT 98
[2021-09-09] MEDS: busPIRone HCl 10 MG TABLET 30 MG PO (08:21)
[2021-09-09] MEDS: Divalproex Sodium ER 500 MG TAB.ER.24H 1000 MG PO (08:21)
[2021-09-09] MEDS: Naloxone HCl Nasal TAKE HOME 4 MG SPRAY NOSTRILALT (08:51)
--- NOTE | 2021-09-09 09:15 | P.DS_ITS ---
DS: Providers Provider Date of Service: 09/09/21 Date of admission: 09/04/21 16:09 Date of discharge: 09/09/21 Primary care physician: Unknown Physician Attending physician on admission: Elliott Oneil Consults: 09/04/21 14:19 Consult to Hospitalist Routine Consulting Provider: Hospitalist Reason For Exam: admit from [facility] 09/04/21 19:27 Consult to Hospitalist Routine Consulting Provider: Hospitalist Reason For Exam: new admit from [facility] Attending physician on discharge: Elliott Oneil DS: Diagnosis Discharge Diagnosis (1) Bipolar II disorder: Status: Acute DS: Medications Discharge Medications Home Medications: Previous Rx's Medication Instructions Recorded buspirone 30 mg tablet 30 mg PO BID 30 Days #60 tab 09/08/21 clonidine HCl 0.1 mg tablet 0.1 mg PO BEDTIME PRN 30 Days #30 09/08/21 tab divalproex 500 mg tablet,extended 1,000 mg PO BID 30 Days #120 tab 09/08/21 release 24 hr melatonin 3 mg tablet 6 mg PO BEDTIME PRN 30 Days #60 tab 09/08/21 nicotine (polacrilex) 4 mg gum 4 mg PO NEEDED PRN 30 Days #100 09/08/21 ea Mental Status Exam Mental Status Exam Narrative: Patient Appearance: casual attire, adequately Groomed Level of Consciousness:?Awake Patient Behavior:?frequent requests to have some unit rules suspended for his comfort Mood Description: good Affect Description:?constricted Patient Cognition Impaired:?No Ability to Follow Directions:fair Speech Pattern: mildly pressured Memory Description:?Intact Hallucinations:?None Delusions:?Not Present Thought Process:goal oriented Thought Content:?discharge; negative for Suicidal Ideation or negative for Homicidal Ideation Judgement and Insight:?fair, adequate Data Data Completed and Pending Completed studies during hospitalization [Text1]: 09/04/21 09/05/21 09/05/21 20:07 08:52 08:52 Sodium 140 Potassium 4.4 Chloride 104 Carbon Dioxide 30 H Anion Gap 10 L BUN 10 Creatinine 1.08 Estim Creat Clear Calc 146.7 Estimated GFR > 60 Fasting Glucose 106 H Estimat Average Glucose 105 Hemoglobin A1c % 5.3 Calcium 10.0 Magnesium 2.0 Total Bilirubin 0.8 Direct Bilirubin AST 14 ALT 28 Alkaline Phosphatase 57 Ammonia Total Protein 6.9 Albumin 4.3 Triglycerides 139 Cholesterol 132 LDL Cholesterol, Calc 72 HDL Cholesterol 33 Vitamin B12 Folate TSH 2.17 Free T4 0.99 Valproic Acid 81.7 09/05/21 09/06/21 09/06/21 08:52 07:51 07:51 Sodium Potassium Chloride Carbon Dioxide Anion Gap BUN Creatinine Estim Creat Clear Calc Estimated GFR Fasting Glucose Estimat Average Glucose Hemoglobin A1c % Calcium Magnesium Total Bilirubin 0.4 Direct Bilirubin 0.2 AST 15 ALT 26 Alkaline Phosphatase 53 Ammonia 51 Total Protein 6.6 Albumin 4.2 Triglycerides Cholesterol LDL Cholesterol, Calc HDL Cholesterol Vitamin B12 501 Folate 6.3 TSH Free T4 Valproic Acid 86.1 DS: Summary Hospital Course Hospital Course: Yogi is a 20 y.o. Who carries a dx of Bipolar II DO, and ADHD.. Per crisis eval, pt presented to the [facility] ED via EMS due to depression, SI. Hx of psych care since childhood for dysregulated behavior, ADHD, angry episodes. Pt endorses sx of hypomania, including impulsivity, irritability/ agitation, hyposomnia, grandoise ideations, and mood dysregulation; also hx of cruelty to animals reported in crisis note. Says he was recently in a depressed episode, had SI with plan to purchase a firearm and OD attempt on fentanyl/ heroin. Hx of excessive alcohol use. Has multiple stressors including eviction notice, recent break up, and unemployment. Re-started psych medications two months ago and says he has been adherent. On admission, Patient cooperative; he was future oriented denies self-harming thoughts has plan to return to [facility] to be with his family. Depakote continued. He was eager for discharge almost to the point of demanding, with somewhat pressured speech, but not hostile or aggressive case. While Depakote was continued, patient did not want any additional medication despite movie writer's Education on his disorder. He mostly felt that his dysregulation was situational, not related to bipolar and also felt that ADHD symptoms were strongly contributory. He was mildy hypomamnic but slept well and gradually accepted that he had remain on the unit to continue to demonstrate that he was in good control. Patient was intermittently demanding with staff, persistently and repeatedly asking that exceptions in unit rules be made for his comfort. However, he ultimately accepted redirection. Otherwise, he remained in overall good behavioral and impulse control on the unit, without any unsafe behaviors. He remained in overall good mood, without any SI, HI or AVH and also with insight that while he might be somewhat hypomanic he does not want to make medication changes here but rather discuss it with his outpatient provider. Patient remained future oriented, returning home to live with his mother with his uncle picking him up to help him get there. He was not in imminent risk for harm to self or others and did not meet criteria for involuntary commitment. His request for discharge honored. Time spent discussing smoking cessation with patient: 3 to 10 minutes Status at Discharge Functional status at discharge: independent ambulation Overall status at discharge: patient is back to baseline Time Spent with Patient Time attestation: Total time spent providing and/or coordinating discharge services: Time spent: Less than 30 minutes Discharge Plan Discharge Patient Disposition: Home, Self-Care Discharge Diagnosis: bipolar disorder, type II; antisocial traits Referrals: Department of Mental Health [Other] - 1 Week (Referral for [facility] services [facility] office provides services to [facility] which includes [facility]. [facility] will follow-up with patient ) Montse Bobo MD [Physician] - 1 Week Physician,Winifred J [Primary Care Provider] - 1 Week Discharge Medications: New buspirone 30 mg tablet 30 mg PO BID 30 Days Qty: 60 0RF melatonin 3 mg Tablet 6 mg PO BEDTIME PRN (Reason: sleep) 30 Days Qty: 60 0RF Continued divalproex 500 mg tablet extended release 24 hr 1,000 mg PO BID 30 Days Qty: 120 0RF Changed clonidine HCl 0.1 mg tablet 0.1 mg PO BEDTIME PRN (Reason: anxiety) 30 Days Qty: 30 0RF nicotine (polacrilex) 4 mg gum 4 mg PO NEEDED PRN (Reason: nicotine cravings) 30 Days Qty: 100 0RF Discontinued buspirone 5 mg tablet 1 tab PO DAILY 0RF nicotine 21 mg/24 hr patch 24 hour 1 patch topical DAILY 0RF buspirone 7.5 mg tablet 1 tab PO BID 0RF buspirone 15 mg tablet 1 tab PO BID 0RF Discharge Orders: Discharge Order (Routine); Ordered 09/09/21 Ordered By: Elliott Oneil Diet: regular diet Activity on Discharge: As tolerated Stand Alone Forms: Patient Portal Discharge page, Community Support Care Plan Goals: Maintain mood and safe behaviors Take medications as prescribed Continue to pursue sobriety Practice coping skills Continue with outpatient providers and reach out to them as needed Health Concerns: Mood stability and behaviors Plan of Treatment: Follow up with your PCP, psychiatric provider and other outpatient providers r egarding above concerns Take medications as prescribed Assessment: Risk assessment at time of discharge:? Patient was interviewed prior to discharge and found to be fully oriented and without any SI or HI. Patient has insight and demonstrates good judgment in terms of wanting to pursue treatment. Patient is not in imminent risk of harm to self or others and has a safety plan that includes presenting to the closest ER or calling 911 if feeling unsafe.? Patient has been observed closely by nursing and unit staff throughout admission; patient has not engaged in any behaviors that suggest dangerousness to self or others and has demonstrated appropriate behaviors and impulse control Discharge Date/Time: 09/09/21 10:29
== END 2021-09-09 10:29 | disposition home or self-care (01) | DRG 753 ==
PROVIDERS: Registered Nurse; Admitting Provider Psychiatry & Neurology Psychiatry; Visit Provider Psychiatry & Neurology Psychiatry
DX: F31.81 Bipolar II disorder (principal); R45.851 Suicidal ideations; F17.210 Nicotine dependence, cigarettes, uncomplicated; F43.10 Post-traumatic stress disorder, unspecified; F90.9 Attention-deficit hyperactivity disorder, unspecified type; Z59.02 Unsheltered homelessness; Z71.6 Tobacco abuse counseling; Z79.899 Other long term (current) drug therapy
CPT/HCPCS: 36415; 80053; 80061; 80076; 80164; 82140; 82607; 82746; 83036; 83735; 84439; 84443